=== PATIENT | female | born 1945 | race Caucasian/White ===

== ENCOUNTER 2022-07-15 10:16 | Inpatient (IN) | payer MEDICARE, BC ==
[~2022-07-15] VITALS: Ht 162.6 cm; Wt 47.4 kg
[2022-07-15 12:25] VITALS: BP 133/76
[2022-07-15 14:19] LABS: Hematocrit 32.2 % (33.0-51.0); Hemoglobin 11.3 g/dL (11.5-16.0)
[2022-07-15 14:35] LABS: Magnesium, Blood 2.2 mg/dL (1.6-2.4); Thyroxine (T4) 10.1 ug/dL (4.8-13.9)
[2022-07-15 14:40] LABS: Albumin, Blood 3.2 g/dL (3.4-5.0); Albumin/Globulin Ratio 1.1 (0.8-1.8); Bilirubin, Total 0.6 mg/dL (0.1-1.0); Bun/Creatinine Ratio 40.1 (12.0-20.0); Calcium, Blood 8.6 mg/dL (8.5-10.1); Creatinine, Blood 0.6 mg/dL (0.40-1.00); Globulin, Blood 2.9 g/dL (2.2-4.0); Potassium, Blood 4.7 mmol/L (3.5-5.5); Total Protein, Blood 6.1 g/dL (6.4-8.2)
[2022-07-15 15:59] VITALS: BP 105/72
--- NOTE | 2022-07-15 17:21 | NUR ---
SHIFT SUMMARY: PT ARRIVED IN THE UNIT VIA GURNEY PT WAS A DIRECT AMDIT FROM [place] AND IS HERE FOR HYPOTHERMIA AND BRADYCARDIA. PT IS ALERT AND ORIENTED, SOME FORGETFULNESS AND SLOW TO RESPOND, SLIGHT SLURRED SPEECH. VITALS HRR SR 70'S BBB SBP 120-140'S, SATS ABOVE 95% ON RA, RR EVEN AND UNLABORED, HYPOTHERMIC AT 95.8F PT WAS RED AND FLUSHED ON BLE,BUE AND FACE, PT STATED IT WAS FROM THE HEATING BLANKET THEY HAD ON HER DURING THE TRANSPORT ALSO PT HAS HX OF RAYNAUDS AND BUERGERS SYNDROME, PT HAS SOME BLANCHABLE REDNESS ON BUTTOCKS/COCCYX MEPILEX IN PLACE FOR PROTECTION WELL ON BILAT HEELS. PT HAS RECTAL CORE TEMP IN PLACE FOR ACCURATE TEMP READING, BEAR HUGGER AT THE BEDSIDE, REQUESTED WARM BLANKETS FOR NOW. PT DENIES ANY CHESTPAIN/PRESSURE OR ANY DISCOMFORT. PT HAS DR GILMORE CAME IN TO ASSESS AND EVAL PT AT THE BEDSIDE ORDERED CT SCAN OF THE HEAD CAME BACK NEGATIVE, CORTISOL TEST DONE WNL. REQUESTED DISCHARGE INFO FROM [facility] IN [place] SENT VIA FAX DR GILMORE REVIEWED. PHYSICAL THERAPY WAS ORDERED EVAL DONE TODAY PT ABLE TO AMBULATE IN THE HALLWAY VIA WALKER 1PA. PT VEGAN DIET RESUMED PT ABLE TO TOLERATE. NO OTHER ISSUES REPORTED AT THIS TIME, PT ABLE TO MAKE NEEDS KNOWN, CALL LIGHTS IN REACH WILL MONITOR
--- NOTE | 2022-07-15 18:19 | NUR ---
CALLED PHARMACY TWICE FOR MED RECONCILATION PT STATED SHE GOES TO [facility] IN [place], NO RECORD ON FILE PER PHARMACIST. PT WAS ASKED IF SHE PCIKED UP ANY PRESCRIPTION FROM THAT SAID PHARMACY FROM LAST DISCHARGE AT [facility] IN [place], PT STATED SHE WAS SENT HOME WITH MEDICATIONS UPON DISCHARGE AND HAVENT HAD ANY PRECRIBED MEDS TAKEN SINCE THEN JUST OTC VITAMIN SUPPLEMENTS.
[2022-07-15 19:54] VITALS: BP 92/52
[2022-07-16] VITALS (7 sets, daily range): BP systolic 102–126; BP diastolic 55–69
--- NOTE | 2022-07-16 05:45 | NUR ---
SHIFT SUMMARY ASSUMED CARE OF PT AT 1900. PT IS A/OX4. HEART SOUNDS REGULAR. LUNG SOUNDS CLEAR. NEUROCHECKS WNL. PT FEET AND HANDS ARE SWOLLEN AND HOT. RECTAL TEMP WENT FROM 95.0 TP 96.0 THIS AM. PT C/O FEELING HOT. PT WENT FOR A WALK THIS AM. PT IS A SBA WITH WALKER. NO OTHER COMPLAINTS.
[2022-07-16 11:32] LABS: Free Thyroxine 1.06 ng/dL (0.70-1.60); Thyroid Stimulating Hormone 2.29 uIU/mL (0.360-4.800)
[2022-07-16] MEDS ORDERED: ACIDOPHILUS1 EAC3 PO (15:30)
[2022-07-16] MEDS ORDERED: [UNRECOGNIZED DRUG - OTHER] PO ×2 (15:35)
[2022-07-16] MEDS ORDERED: HAIR, SKIN AND1 EAC3 PO (15:36)
[2022-07-16] MEDS ORDERED: MULTIPLE VITAM1 EACH PO (15:37)
[2022-07-16] MEDS ORDERED: DYAZIDE 37.5-21 EACH PO (15:40)
[2022-07-16] MEDS ORDERED: VITAMIN D325 MC3 PO (15:46)
[2022-07-16] MEDS ORDERED: VITAMIN K240 MCG PO (15:47)
[2022-07-16] MEDS ORDERED: MISCTAB PO ×9 (15:57→16:09)
[2022-07-16 16:20] LABS: PCO2 Arterial 46.7 mmHg (35-45); PO2 Arterial 88.2 mmHg (80-100); pH Blood Arterial 7.44 (7.35-7.45)
[2022-07-16 16:56] LABS: Prolactin 14.1 ng/mL (2.74-19.64)
--- NOTE | 2022-07-16 17:24 | NUR ---
END OF SHIFT PT A&O X4. PT TEMPATURE LOW OTHERWISE VSS. SINUS AMARILYS 50'S-70'S. SPO2 > 92%. PT DENIES ANY CP OR SOB. PT'S BILATERAL HANDS AND FEET SWOLLEN, RED, & WARM TO TOUCH. PT C/O OF FEELING HOT DESPITE RECTAL TEMP BEING LOW. PT WITH NO OTHER COMPLAINTS.
[2022-07-17 04:29] VITALS: BP 116/60
--- NOTE | 2022-07-17 05:24 | NUR ---
Assumed care of patient at 1900, A/Ox4, SBA in room. SR/SB w/BBB on tele 50-70s. Denies CP/Pressure, VSS. Red extremities noted, Hx of Raynaud's. 1+ pitting edema to bl hands and feet. Patient was able to sleep most of the night. No acute changes, will report to dayshift RN.
[2022-07-17 08:44] VITALS: BP 130/71
--- NOTE | 2022-07-17 11:03 | NUR ---
DISCHARGE NOTE PT A&O X4. VSS. SPO2 > 92% ON RA. TEMPERATURE WITHIN NORMAL LIMITS. WITH ORDERS FOR D/C. PT PROVIDED WITH DISCHARGE PAPER WORK. IV D/C'D. PT WHEELED OUT IN WHEELCHAIR WITH PCT @ 1115.
== END 2022-07-17 11:38 | disposition home or self-care (01) | DRG 922 ==
LOC: PCU 10:16
PROVIDERS: Internal Medicine; ADMIT Family Medicine
PROC: 4A033R1 Measurement of Arterial Saturation, Peripheral, Percutaneous Approach (ICD-10-PCS; principal; 2022-07-16)
DX: T68.XXXA Hypothermia, initial encounter (principal); G92.8 Other toxic encephalopathy; D74.9 Methemoglobinemia, unspecified; M34.1 CR(E)ST syndrome; I10 Essential (primary) hypertension; R00.1 Bradycardia, unspecified; R27.0 Ataxia, unspecified; D89.89 Other specified disorders involving the immune mechanism, not elsewhere classified; R63.4 Abnormal weight loss; Z88.1 Allergy status to other antibiotic agents; Z85.3 Personal history of malignant neoplasm of breast; Z85.41 Personal history of malignant neoplasm of cervix uteri; Z90.12 Acquired absence of left breast and nipple
CPT/HCPCS: 36415; 36600; 70450; 80053; 80400; 82140; 82375; 82533; 82550; 82607; 82746; 82803; 83735; 84146; 84436; 84439; 84443; 85014; 85018; 93306; 97116; 97162; A9270; J0834; J1650